=== PATIENT | female | born 1975 | race African-American/Black ===

== ENCOUNTER 2017-09-24 16:09 | Emergency (ER) | payer SELFPAY ==
[~2017-09-24 16:09] MED LIST: IBUP400T20 PO; PRED20 PO; SULF-154 PO
[2017-09-24 16:11] VITALS: BP 148/77; PULSE 96; RESP 16; TEMP 98.9; O2SAT 100
--- NOTE | 2017-09-24 16:55 | PD ---
HPI Chief Complaint: ENT Complaint Time Seen by Provider: 16:48 Travel History International Travel<30 days: No Contact w/Intl Traveler<30days: No Traveled to known affect area: No History of Present Illness HPI 42-year-old female presents to emergency department with right ear pain since Saturday. States the pain is located in the ear and radiates to the right anterior neck. Patient states that she also developed mild facial swelling with tenderness the same day. Patient states that she has had a mild runny nose and congestion. Denies fever, chills, chest pain, shortness of breath, abdominal pain. Patient does have a history of excessive earwax and has had to use earwax softening solution for this. Since Saturday, whenever she applied the earwax softening solution, she's had a burning sensation her right ear. PFSH Past Medical History Anemia: Yes Asthma: Yes Diminished Hearing: No Headaches: Yes Hypertension: Yes : 2 Para: 2 Miscarriage: 0 : 0 Tubal Ligation: Yes (2005) Social History Alcohol Use: No Tobacco Use: No Substance Use: No Allergies-Medications (Allergen,Severity, Reaction): Coded Allergies: penicillin G (Unverified Allergy, Severe, HIVES, 06/11/17) Reported Meds & Prescriptions Reported Meds & Active Scripts Active Bactrim DS (Sulfamethoxazole-Trimethoprim) 800-160 Mg Tab 1 Tab PO BID Ciprodex Otic Drops (Ciprofloxacin-Dexamethasone Otic Drops) 0.3-0.1% Susp 4 Drop RIGHT EAR BID 5 Days Deltasone (Prednisone) 20 Mg Tab 20 Mg PO BID Septra Ds (Trimethoprim/Sulfamethoxazole) Tab 1 Tab PO BID 10 Days Reported Motrin (Ibuprofen) 400 Mg Tab 400 Mg PO Q6HPRN 0 Days Review of Systems Except as stated in HPI: all other systems reviewed are Neg Physical Exam Narrative GENERAL: Well-nourished, well-developed patient. SKIN: Focused skin assessment warm/dry. HEAD: Normocephalic. EYES: No scleral icterus. No injection or drainage. Ears- right ear tympanic membrane dull, fluid present, bloody exudate left ear- TM pearly negron, cone of light present, no fluid-air levels NECK: Supple, trachea midline. No JVD or lymphadenopathy. CARDIOVASCULAR: Regular rate and rhythm without murmurs, gallops, or rubs. RESPIRATORY: Breath sounds equal bilaterally. No accessory muscle use. MUSCULOSKELETAL: No cyanosis, or edema. BACK: Nontender without obvious deformity. No CVA tenderness. Data Data Last Documented VS Vital Signs Date Time Temp Pulse Resp B/P (MAP) Pulse Ox O2 Delivery O2 Flow Rate FiO2 09/24/17 17:05 09/24/17 16:11 98.9 96 16 100 Room Air Orders Orders Ed Discharge Order (09/24/17 16:59) MDM Medical Decision Making Medical Screen Exam Complete: Yes Emergency Medical Condition: Yes Differential Diagnosis Otitis media versus otitis externa versus tympanic membrane rupture versus abnormality Narrative Course 42-year-old female presents to emergency department with right ear pain since Saturday. States the pain is located in the ear and radiates to the right anterior neck. Patient states that she also developed mild facial swelling with tenderness the same day. Slight decreased hearing of right ear. Patient states that she has had a mild runny nose and congestion. Denies fever, chills , chest pain, shortness of breath, abdominal pain. Patient does have a history of excessive earwax and has had to use earwax softening solution for this. Since Saturday, whenever she applied the earwax softening solution, she's had a burning sensation her right ear. Vital signs stable. Physical exam consistent with TM rupture and developing infection. Because of patient complaints and physical exam, there is concern for extension of the infectious process of her ear. Prescribed Ciprodex and Bactrim. Pt strongly advised to follow up with an Ear Note Throat specialist for evaluation within 2-3 days. Reassured pt. Stop any other ear drops. Follow up with PCP. Diagnosis Primary Impression: Tympanic membrane disorder Qualified Codes: H73.91 - Unspecified disorder of tympanic membrane, right ear Referrals: Ear / Nose / Throat Specialist Additional Instructions: Follow-up with primary care physician within 2-3 days. Take all medication as prescribed. Follow-up with an staff research scientist within 1 week. If your symptoms persist or worsen return to the emergency department Scripts Sulfamethoxazole-Trimethoprim (Bactrim DS) 800-160 Mg Tab 1 TAB PO BID for Infection, #14 TAB 0 Refills Prov: Brendan Zimmerman MD 09/24/17 Ciprofloxacin-Dexamethasone Otic Drops (Ciprodex Otic Drops) 0.3-0.1% Susp 4 DROP RIGHT EAR BID for Infection for 5 Days, #1 BOTTLE 0 Refills Prov: Brendan Zimmerman MD 09/24/17 Disposition: 01 DISCHARGE HOME Condition: Stable Adriane Carft Sep 24, 2017 16:55
[2017-09-24] MEDS ORDERED: CIPR0.3S RIGHT EAR (16:58)
[2017-09-24] MEDS ORDERED: BACT800T5 PO (16:58)
== END 2017-09-24 17:14 | disposition home or self-care (01) ==
LOC: NEPK 16:09
DX: H73.91 Unspecified disorder of tympanic membrane, right ear (principal)
CPT/HCPCS: 99283